=== PATIENT | male | born 1960 ===

== ENCOUNTER 2017-09-13 11:11 | Emergency (ER) | payer OTHER ==
[2017-09-13 12:14] VITALS: RESP 18
--- NOTE | 2017-09-13 13:31 | RAD ---
PROCEDURE: Right Ankle Radiographs. HISTORY: right ankle injury COMPARISON: None FINDINGS: BONES: No acute fracture. JOINTS: Widening of the medial clear space. Talar dome intact SOFT TISSUES: Bimalleolar soft tissue swelling. Small ankle joint effusion. OTHER FINDINGS: None. IMPRESSION: Bimalleolar soft tissue swelling and small ankle joint effusion. Widening of the medial clear space suggestive of deltoid ligament injury with proximal fibular fracture not excluded. Dedicated right tibia/ fibula radiographs is recommended to assess for proximal fibular fracture. Findings and recommendations conveyed to Dr. Olivares by Dr. Babin at 01:28 p.m. on 09/13/2017.
--- NOTE | 2017-09-13 13:48 | RAD ---
PROCEDURE: Radiographs of the right tibia and fibula. HISTORY: DISTAL TIB FIB ASSESSMENT COMPARISON: None available. TECHNIQUE: Frontal and lateral views obtained. FINDINGS: BONES: Minimally displaced fracture proximal fibula. JOINT SPACES: Unremarkable. OTHER FINDINGS: Bimalleolar soft tissue swelling. IMPRESSION: Minimally displaced fracture of the proximal fibular diaphysis.
--- NOTE | 2017-09-13 13:54 | C.PDOC ---
History Of Present Illness 56 y/o male presents to the ER complaining right ankle pain which has been present since yesterday. Patient states that he was playing soccer when he ran backwards and twisted his right ankle. Patient reports that he is unable to bear weight in his right ankle. Denies having other injuries. Time Seen by Provider: 09/13/17 12:14 Chief Complaint (Nursing): Lower Extremity Problem/Injury History Per: Patient History/Exam Limitations: no limitations Onset/Duration Of Symptoms: Days Current Symptoms Are (Timing): Still Present Severity: Moderate Past Medical History Reviewed: Historical Data, Nursing Documentation, Vital Signs Vital Signs: Last Vital Signs Temp 98.1 F 09/13/17 14:32 Pulse 67 09/13/17 14:32 Resp 18 09/13/17 14:32 BP 129/73 09/13/17 14:32 Pulse Ox 98 09/13/17 19:41 - Medical History PMH: No Chronic Diseases Surgical History: No Surg Hx Family History: States: No Known Family Hx - Social History Hx Alcohol Use: Yes Hx Substance Use: No - Immunization History Hx Tetanus Toxoid Vaccination: No Hx Influenza Vaccination: Yes Hx Pneumococcal Vaccination: Yes Review Of Systems Except As Marked, All Systems Reviewed And Found Negative. Musculoskeletal: Positive for: Other (right ankle pain) Neurological: Negative for: Weakness, Numbness Physical Exam - Physical Exam Appears: Non-toxic, No Acute Distress Skin: Normal Color, Warm, Dry, Ecchymosis (ecchymosis over dorsum of right ankle ) Head: Atraumatic, Normacephalic Eye(s): bilateral: Normal Inspection Nose: Normal Oral Mucosa: Moist Neck: Supple Chest: Symmetrical Cardiovascular: Rhythm Regular Respiratory: Normal Breath Sounds, No Rales, No Rhonchi, No Wheezing Extremity: Tenderness (diffuse tenderness greatest at right lateral malleolus), Capillary Refill (< 2 seconds), Swelling (moderate swelling to right lateral malleolus), Other ((-) tenderness to right knee and right lower leg) Pulses: Right Dorsalis Pedis: Normal Neurological/Psych: Oriented x3, Normal Speech ED Course And Treatment O2 Sat by Pulse Oximetry: 98 (RA) Pulse Ox Interpretation: Normal - Other Rad X-Ray - Right Tibia/ Fibula X-Ray: Viewed By Me, Read By Radiologist Interpretation: PROCEDURE: Radiographs of the right tibia and fibula. HISTORY : DISTAL TIB FIB ASSESSMENT. COMPARISON: None available. TECHNIQUE: Frontal and lateral views obtained. FINDINGS: BONES: Minimally displaced fracture proximal fibula. JOINT SPACES: Unremarkable. OTHER FINDINGS: Bimalleolar soft tissue swelling. IMPRESSION: Minimally displaced fracture of the proximal fibular diaphysis. X-Ray- Right Ankle X-Ray: Viewed By Me, Read By Radiologist Interpretation: PROCEDURE: Right Ankle Radiographs. HISTORY: right ankle injury. COMPARISON: None. FINDINGS: BONES: No acute fracture. JOINTS: Widening of the medial clear space. Talar dome intact. SOFT TISSUES: Bimalleolar soft tissue swelling. Small ankle joint effusion. OTHER FINDINGS: None. IMPRESSION: Bimalleolar soft tissue swelling and small ankle joint effusion. Widening of the medial clear space suggestive of deltoid ligament injury with proximal fibular fracture not excluded. Dedicated right tibia/ fibula radiographs is recommended to assess for proximal fibular fracture. Findings and recommendations conveyed to Dr. Olivares by Dr. Babin at 01:28 p.m. on 09/13/2017. Progress Note: X-Ray - Tibia/ Fibula shows proximal fibular fracture. Posterior splint has been placed by automatic equipment technician. Crutches and instructions have been provided to patient. Patient has been discharged and instructed to follow up with orthopedics in 1 week and return to ER if symptoms worsen. Disposition Counseled Patient/Family Regarding: Studies Performed, Diagnosis, Need For Followup, Rx Given - Disposition Referrals: Renetta Wright MD [Staff Provider] - [facility] [Outside] Disposition: HOME/ ROUTINE Disposition Time: 13:55 Condition: STABLE Additional Instructions: FOLLOW UP WITH ORTHOPEDICS WITHIN 1 WEEK USE PAIN MEDICATION NEEDED RETURN TO ER IF SYMPTOMS WORSEN Prescriptions: Acetaminophen with Codeine [Tylenol with Codeine #3 Tablet] 1 each PO Q6 PRN # 15 tablet PRN Reason: pain Instructions: Ankle Sprain (DC), Fibula Fracture (DC) Forms: [employer] (Lithuanian), Work Excuse Print Language: NIGERIAN - POA Present On Arrival: Falls Or Trauma - Clinical Impression Clinical Impression: Fracture, fibula, proximal, Right ankle sprain - Scribe Statement The provider has reviewed the documentation as recorded by the Rohit Casas Provider Attestation: All medical record entries made by the Scribe were at my direction and personally dictated by me. I have reviewed the chart and agree that the record accurately reflects my personal performance of the history, physical exam, medical decision making, and the department course for this patient. I have also personally directed, reviewed, and agree with the discharge instructions and disposition.
[2017-09-13] MEDS ORDERED: Acetaminophen-Codeine 300/30 mg Tab PO STA (14:22)
[2017-09-13] MEDS ORDERED: Acetaminophen-Codeine 300/30 mg Tab PO ONE (14:28)
[2017-09-13 14:33] VITALS: BP 129/73; PULSE 67; TEMP 98.1
[2017-09-13 16:44] VITALS: O2SAT 98
== END 2017-09-13 14:54 | disposition home or self-care (01) ==
LOC: C.ER 11:11
DX: S82.831A Other fracture of upper and lower end of right fibula, initial encounter for closed fracture (principal); S93.401A Sprain of unspecified ligament of right ankle, initial encounter; X50.9XXA Other and unspecified overexertion or strenuous movements or postures, initial encounter; Y93.66 Activity, soccer
CPT/HCPCS: 29515; 73590; 73610; 97116; 97161; 99285; G8978; G8979; G8980

== ENCOUNTER 2017-09-24 06:10 | Day surgery (SDC) | payer OTHER ==
[2017-09-24] MEDS ORDERED: ceFAZolin IV 2 gm in Dextrose 2 GM/50 ML BAG IVPB ONE (07:42)
[2017-09-24] MEDS ORDERED: Neostigmine Methylsulfate 3mg/3ml Syringe IV ONE (09:12)
[2017-09-24] MEDS ORDERED: Oxycodone/Acetaminophen 5/325 mg Tab PO PRN ×2 (10:12)
--- NOTE | 2017-09-24 10:21 | PCM.SURG1 ---
<Frida Rose - Last Filed: 09/24/17 10:17> Surgeon's Initial Post Op Note - Surgeon's Notes Surgeon: Dr. Whiting Superintendent Commissary: Dr. Frida Rose DPM PGY-1 Type of Anesthesia: General LMA Anesthesia Administered By: Dr. Celia OH Pre-Operative Diagnosis: Right high fibular fracture with syndesmotic ligament rupture Operative Findings: See dictation Post-Operative Diagnosis: Same Operation Performed: 1). close reduction of fibular fracture. 2). close reduction of ankle fracture. 3). repair of syndesmosis using arthrex tight- rope system. 4). application of long leg cast Specimen/Specimens Removed: none Estimated Blood Loss: EBL {In ML}: 30 Blood Products Given: N/A Drains Used: No Drains Post-Op Condition: Good Date of Surgery/Procedure: 09/24/17 Time of Surgery/Procedure: 10:21 <Renetta Wright - Last Filed: 10/01/17 15:47> Surgeon's Initial Post Op Note - Surgeon's Notes Type of Anesthesia: [facility] Pre-Operative Diagnosis: Right leg/ankle: #1 syndesmotic instability/injury. # 2 ankle instability/subluxation/dislocation. #3 deltoid ligament complete tear. #4 fibular shaft displaced oblique fracture Operation Performed: Right ankle: #1 open fixation/repair syndesmotic ligament. #2 closed reduction fibular shaft fracture. #3 closed reduction ankle disloaction. #4 placement in long leg cast Specimen/Specimens Removed: specimen= none. complications= none. implants= Arthrex syndesmotic titanium tightrope buttons x2 and 2-hiole plate
[2017-09-24] MEDS: HYDROmorphone 0.5 mg/0.5 ml ISec IVP PRN ×4 (10:49→12:06)
[2017-09-24] MEDS ORDERED: Bupivacaine HCl 0.25% PF (30 ml) Inj ONE (10:54)
--- NOTE | 2017-09-24 11:21 | RAD ---
PROCEDURE: Intraoperative Fluoroscopy. HISTORY: FX. RT. ANKLE FINDINGS: Fluoroscopic assistance was provided. 108.2 seconds fluoroscopy time. . Radiation dose = 1.3 mGy Please refer to the operative report from JUSTINA Bill DR, MD.
[2017-09-24 13:00] VITALS: RESP 16; TEMP 97.7
[2017-09-24 17:18] VITALS: BP 116/71; PULSE 72; O2SAT 99
--- NOTE | 2017-09-27 15:09 | CARD ---
APPROVED REPORT EKG Measurement Heart [id number] <Conclusion> Normal sinus rhythm Normal ECG
--- NOTE | 2017-11-15 05:56 | OP ---
PROCEDURE DATE: 09/24/2017 PREOPERATIVE DIAGNOSES: Right leg/ankle: 1. Syndesmotic instability/injury. 2. Ankle instability/subluxation. 3. Deltoid ligament complete tear. 4. Fibular shaft displaced oblique fracture. POSTOPERATIVE DIAGNOSES: Right leg/ankle: 1. Syndesmotic instability/injury. 2. Ankle instability/subluxation. 3. Deltoid ligament complete tear. 4. Fibular shaft displaced oblique fracture. PROCEDURE: Right leg/ankle: 1. Open fixation/repair, syndesmotic ligament. 2. Closed reduction, fibular shaft fracture. 3. Primary repair, deltoid ligament. 4. Closed reduction, ankle subluxation. 5. Placement in long leg cast. SURGEON: Renetta Whiting MD ASSISTANTS: Frida Rose DPM, first year podiatry resident. ANESTHESIA: General endotracheal anesthesia. SPECIMENS: None. COMPLICATIONS: None. TOURNIQUET TIME: 0 minutes. ESTIMATED BLOOD LOSS: 30 mL. DISPOSITION: The patient was extubated and transferred to PACU in stable condition and tolerated the procedure well. IMPLANTS: Arthrex Syndesmotic TightRope Titanium buttons x2 with a 2-hole Syndesmotic TightRope Buttress plate, #2 FiberWire suture for deltoid repair. INDICATIONS FOR SURGERY: The patient is a 57-year-old male with no significant past medical history, who presents to the office for the first time under my care on 09/16/2017 with right ankle and leg pain since 09/12/2017. The patient states that he was playing recreational soccer with his friends on a grass field when he was running with the ball backwards causing him to twist his right ankle and he fell. He felt a snap and a pop localized to the fibula and the midpoint of his ankle. He was unable to tolerate any weightbearing and had immediate swelling with 10/10 pain localized to the ankle immediately after injury. He thought it was just a bad sprain and may improve with rest and elevation. The next day when the pain and swelling worsened, he was seen at the emergency room at [facility] on 09/13/2017. After review of imaging and evaluation by ER staff, he was diagnosed with a fibular shaft fracture and sprained ankle/ligament tears. He was placed in a splint and given crutches with instructions to be strict nonweightbearing to the right lower extremity. He was instructed to follow up with an orthopedic surgeon as an outpatient. In my office, on 09/16/2017, x-rays revealed a displaced oblique fibular shaft fracture with medial widening of the medial ankle joint space with a subluxed talus. Stress examination performed under x-ray showed that the syndesmosis was unstable with a completely torn syndesmotic ligament. The talus and mortis were laterally subluxed as well with a complete deltoid tear. Physical examination yielded max tenderness to palpation at the fibular fracture as well as the syndesmosis and the deltoid ligament. He underwent closed reduction of the fracture and the ankle joint in the office and placement in a long leg cast. He was instructed to ice and elevate above the level of his heart as much as possible. I explained to him that he is indicated for surgical fixation/repair of his injury, but that the swelling needs to be markedly improved before it is safe to proceed with surgery. He followed up a week later, and the cast was removed and indeed the soft tissue swelling had been markedly improved as he had been compliant with the nonweightbearing and elevation instructions with good cast care performed. At that point in time, I reviewed the imaging with him once again as well as his son and we discussed treatment options. He was indicated for right ankle/leg open syndesmotic repair/fixation, closed reduction of the fibular shaft fracture, closed reduction of the ankle joint to close down the medial joint space and allow for deltoid healing with conservative treatment, placement in a long leg cast again. The risks, benefits, and alternatives of the procedure were discussed at length with the patient and his family with the risks including, but not limited to infection, neurovascular damage, need for further surgery, failure of implants and fixation, development of chronic pain and disability, inability to return to preinjury level with activity and sports, need for further surgery, development of blood clots including DVT and PE, malunion, nonunion, anesthesia reactions including . After answering all these questions, they understood the risks and wished to proceed with surgery. All discussions were made with the use of a [place] speaking manager commercial in my office. He watched surgical animation videos and diagnoses animation videos in my office in Rwandan and said they had a good understanding of his diagnoses as well as the procedure to be done. I reviewed at length with him the postoperative rehabilitation protocol, including initial period of immobilization and strict nonweightbearing, the patient stated that he understood the need for compliance with the rehab protocol in order to maximize the chance of having successful outcome after surgery. He was referred to his primary care physician for preoperative medical clearance and PATs, and the procedure was scheduled on 09/24/2017 at [facility]. PROCEDURE IN DETAIL: The patient was identified in the preoperative holding area, and the right ankle was marked for surgery. Once again as described above the risks, benefits, and alternatives to the procedure were discussed at length with the patient with the use of a [place] speaking manager commercial, and informed consent was obtained. The cast was removed, and the skin was evaluated, and indeed the swelling was much improved and safe to proceed with surgery. After a brief discussion with anesthesia staff, perioperative IV antibiotics were administered after the patient was taken to the operating room and placed in a well-padded operating room table with all bony prominences and superficial neurovascular structures well padded, radiolucent operating room table. An initial timeout was done with the surgeon, anesthesia staff, OR staff, all in agreement with the patient, procedure being done, extremity being operated on. General anesthesia was administered without difficulty or complication. Examination under fluoroscopy and anesthesia was then carried out. Examination under anesthesia: Right ankle with significant instability, positive anterior drawer, positive talar tilt, fluoroscopic dynamic imaging revealed significant syndesmotic widening as well as deltoid ligament widening with subluxing tibiotalar joint laterally from a completely disrupted syndesmosis and deltoid. The fibular shaft fracture under fluoroscopic imaging revealed some motion that was correctable and reducible with closed reduction techniques and internal rotation of the ankle. Continuation of procedure: A tourniquet was placed high on the right thigh but never inflated. The right lower extremity was prepped and draped in a standard sterile fashion. Fluoroscopic imaging was taken to marcelo out landmarks, including the level of the tibiotalar joint line and a measurement of 1 cm proximal and 1 cm proximal to that, to determine where the two Syndesmotic TightRopes will be placed. Due to the patient's age, I elected to proceed with placement of a buttress plate to avoid stress riser from 2 holes created by the Syndesmotic TightRopes. Final timeout was done with the surgeon, anesthesia staff, OR staff, all in agreement with the patient, procedure being done, extremity being operated on. Procedure was started with a posterolateral incision at the distal fibula to avoid placing the wound directly over the buttress plate. Incision was made through skin, down to subcutaneous tissue, down to the level of fascia while maintaining good hemostasis. Incision was approximately 4 cm in length. The posterior aspect of the distal fibula was identified after the peroneal tendons were retracted posteriorly. We then developed the plane end to work to the lateralized aspect of the distal fibula and expose anteriorly at the syndesmosis. The periosteum was then divided and elevated from the bone. Fluoroscopic imaging was used to confirm optimal placement of the first guidewire and placement of the buttress plate at approximately 1 to 1.5 cm proximal to the tibiotalar joint line. A large periarticular reduction clamp was then placed, applying pressure and reducing the ankle joint and the syndesmosis between the distal fibula and the medial malleolus. At that point in time, the guidewire was used and advanced with a 20-degree posterior to anterior inclination parallel to the level of the joint line, approximately 1.5 cm proximal to the joint line between all four cortexes of the fibula to the medial distal tibia. Once the pin was through all four cortexes, the cannulated drill/reamer was advanced over the pin to create the path for the Syndesmotic TightRope. With the buttress plate in position, the tightrope was passed through all four cortexes and flipped under direct fluoroscopic visualization with no interposed soft tissue and well seated on the distal medial tibial cortex. With the large periarticular clamp in position and applying pressure and reducing the syndesmosis as well as the ankle joint, the tightrope was tightened down and synched. We then proceeded with placement of the second tightrope with less of a posterior to anterior inclination through all four cortexes repeating the same steps. The second tightrope was placed more proximally through the second hole of the buttress plate and synched down. Once again under direct fluoroscopic visualization, we ensured that there was no interposed soft tissue at the medial tightrope button that was flipped on the distal tibial medial cortex. Once both tightropes were in to satisfaction and synched down with the buttress plate in good position at the distal lateral fibula, the periarticular clamp was removed and a repeat stress examination was carried out. Indeed, syndesmotic stability was restored. There was still some lateral ankle/talar strangulation due to the complete deltoid rupture with a talar tilt. This would be addressed with conservative treatment in the long leg cast, and a primary deltoid repair would not be carried out unless he failed conservative treatments, which was all agreed upon surgical plan. The wound was copiously irrigated, and final fluoroscopic images were taken. The Syndesmotic TightRope, both the distal and the proximal fixation devices were tightened down even further. Periosteum was reapproximated after the wound was copiously irrigated. The periosteum and deep tissue were reapproximated with #1 Vicryl suture. A 2-0 Vicryl suture was used for reapproximation of subcutaneous tissue. [place] were used for reapproximation of skin. Sterile dressings were then applied followed by a layer of sterile cast padding from the toes all the way up to the superior thigh. A well-padded long leg cast was then placed from the toes all the way up to the superior thigh with the knee at approximately 45 to 60 degrees of flexion. This was done to aid the patient in ice and elevation of the ankle above the level of the heart and to aid him with ambulation with crutches and avoid striking his toes on the ground. Before the cast hardened, the ankle was internally rotated, and under direct fluoroscopic imaging, a closed reduction of the fibular shaft fracture was carried out with near anatomic alignment maintained. The ankle joint itself was also reduced with the help of my congressional assistant, and the medial joint space was closed down placing the ankle in slight internal rotation and pronation while keeping it at neutral dorsiflexion. Once the cast hardened, final fluoroscopic imaging was taken and confirmed that the medial joint space was reduced, that the Syndesmotic TightRope and syndesmosis fixation was well maintained in good position, and the fibular shaft fracture was well reduced in an anatomic position with a cast that was well padded. The patient was then awaken from anesthesia and transferred to the PACU in stable condition and tolerated the procedure well. DISPOSITION: The patient will be discharged home once he recovers from anesthesia. He will work with Physical Therapy to make sure that he is proficient at ambulating while maintaining strict nonweightbearing to the right lower extremity. He is instructed on cast care. He will follow up in my office within two weeks and already has his postoperative appointment set up. He will contact me with any questions or concerns. He has been given a prescription for Percocet for pain control. He also has been given a prescription for Lovenox 40 mg as DVT prophylaxis to start postoperative day #1 for two weeks. Renetta Whiting, MDDD: 11/14/2017 18:19:23
== END 2017-09-24 17:00 | disposition home or self-care (01) ==
LOC: C.SDS 06:10
PROVIDERS: ATTEND Student in an Organized Health Care Education/Training Program
DX: S82.431A Displaced oblique fracture of shaft of right fibula, initial encounter for closed fracture (principal); S93.431A Sprain of tibiofibular ligament of right ankle, initial encounter; S93.421A Sprain of deltoid ligament of right ankle, initial encounter; S93.04XA Dislocation of right ankle joint, initial encounter
CPT/HCPCS: 27695; 27781; 27829; 27840; 76000; 93005; 97116; 97161; C1713; G8978; G8979; G8980; J0690; J1170; J2710; J3010